=== PATIENT | male | born 1995 | race Caucasian/White ===

== ENCOUNTER 2019-04-20 15:45 | Emergency (ER) | payer MEDICAID ==
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
[2019-04-20 16:01] VITALS: BP 143/85; PULSE 90; O2SAT 97
== END 2019-04-20 16:30 | disposition home or self-care (01) ==
LOC: ED 15:45
DX: Z04.1 Encounter for examination and observation following transport accident (principal)
CPT/HCPCS: 99284

== ENCOUNTER 2021-03-23 04:16 | Emergency (ER) | payer SELFPAY ==
[2021-03-23] MEDS ORDERED: TORAdol 30 mg Injection IV ONE (04:57)
[2021-03-23] MEDS ORDERED: GI COCKTAIL 45 ML (Maalox/Lidocaine) PO ONE (04:57)
[2021-03-23] MEDS ORDERED: Sodium Chloride 0.9% 1000 ML 1,000 ML IV STA (04:57)
[2021-03-23] MEDS ORDERED: Pepcid 20 MG VIAL IV ONE ×2 (04:57→05:03)
--- NOTE | 2021-03-23 04:58 | ERPHSYRPT ---
- History of Present Illness Time Seen by Provider: 03/23/21 04:55 Historian: patient Exam Limitations: no limitations Patient Subjective Stated Complaint: Patient states " I woke up with having sharp and dull pains in the left side of my stomach." Triage Nursing Assessment: . Physician History: 26 years old presented in the ER with chief complaint of sudden onset left-sided abdominal pain waking from sleep moderate to severe intensity with radiation to left flank, reports associated nausea but no vomiting. Denies any constipation or diarrhea. Does not have history of GERD. Denies fever or chills/sick contact. Timing/Duration: hour(s) (3), constant, sudden, improved Activities at Onset: sleep Quality: dullness, sharpness Abdominal Pain Onset Location: LUQ, epigastric, flank Severity of Pain-Max: severe Severity of Pain-Current: moderate Modifying Factors: Improves With: nothing Associated Symptoms: nausea, No vomiting Previous symptoms: no prior history Allergies/Adverse Reactions: No Known Drug Allergies Allergy (Verified 03/23/21 04:38) Hx Tetanus, Diphtheria Vaccination/Date Given: No Hx Influenza Vaccination/Date Given: No Hx Pneumococcal Vaccination/Date Given: No Immunizations Up to Date: Yes Travel Risk - International Travel Have you traveled outside of the country in past 3 weeks: No - Coronavirus Screening Are you exhibiting any of the following symptoms?: No Close contact with a COVID-19 positive Pt in past 14-21 Days: No - Vaccine Status Have you recieved a Covid-19 vaccination: No - Review of Systems Constitutional: No Symptoms Eyes: No Symptoms Ears, Nose, & Throat: No Symptoms Respiratory: No Symptoms Cardiac: No Symptoms Abdominal/Gastrointestinal: Abdominal Pain, Nausea Genitourinary Symptoms: No Symptoms Musculoskeletal: No Symptoms Skin: No Symptoms Neurological: No Symptoms Psychological: No Symptoms Endocrine: No Symptoms Hematologic/Lymphatic: No Symptoms Immunological/Allergic: No Symptoms - Past Medical History Pertinent Past Medical History: No Neurological History: No Pertinent History ENT History: No Pertinent History Cardiac History: No Pertinent History Respiratory History: No Pertinent History Endocrine Medical History: No Pertinent History Musculoskeletal History: No Pertinent History GI Medical History: No Pertinent History History: No Pertinent History Psycho-Social History: No Pertinent History Male Reproductive Disorders: No Pertinent History - Past Surgical History Past Surgical History: No Neuro Surgical History: No Pertinent History Cardiac: No Pertinent History Respiratory: No Pertinent History Gastrointestinal: No Pertinent History Genitourinary: No Pertinent History Musculoskeletal: No Pertinent History Male Surgical History: No Pertinent History - Social History Smoking Status: Never smoker Exposure to second hand smoke: No Drug Use: none Patient Lives Alone: No - Nursing Vital Signs Nursing Vital Signs: Initial Vital Signs Temperature 97.9 F 03/23/21 04:17 Pulse Rate 70 03/23/21 04:17 Respiratory Rate 18 03/23/21 04:17 Blood Pressure 139/75 03/23/21 04:17 O2 Sat by Pulse Oximetry 100 03/23/21 04:17 Pain Scale Pain Intensity 0 - Physical Exam General Appearance: no apparent distress, alert Eye Exam: PERRL/EOMI, eyes nml inspection Ears, Nose, Throat Exam: normal ENT inspection, pharynx normal, moist mucous membranes Neck Exam: normal inspection, supple, full range of motion Respiratory Exam: normal breath sounds, lungs clear Cardiovascular Exam: regular rate/rhythm, normal heart sounds Gastrointestinal/Abdomen Exam: soft, normal bowel sounds, tenderness (Left-sided abdominal pain) Extremity Exam: normal inspection, normal range of motion Neurologic Exam: alert, oriented x 3, cooperative, fur storage clerk II-XII nml as tested Skin Exam: normal color SpO2 Interpretation: normal SpO2: 100 O2 Delivery: Room Air Ordered Tests: Active Orders 24 hr Category Date Time Status IV Insertion STAT Care 03/23/21 04:57 Active ABDOMEN AND PELVIS W/0 CONTRAS [CT] Stat Exams 03/23/21 04:57 Taken CBC W DIFF Stat Lab 03/23/21 05:22 Completed CMP Stat Lab 03/23/21 05:22 Completed LIPASE Stat Lab 03/23/21 05:22 Completed UA W/RFX UR CULTURE Stat Lab 03/23/21 05:00 Completed Medication Summary Discontinued Medications Generic Name Dose Route Start Last Admin Trade Name Freq PRN Reason Stop Dose Admin Al Hydrox/Mg Hydrox/Simethicone Confirm 03/23/21 05:05 Mag Hydrox/Al Hydrox/Simeth 30 Ml Udcup Administered 03/23/21 05:06 Dose 30 ml .ROUTE .STK-MED ONE Famotidine 20 mg 03/23/21 04:57 03/23/21 05:13 Famotidine 20 Mg/1 Vial IV 03/23/21 04:58 20 mg STAT ONE Administration Famotidine Confirm 03/23/21 05:03 Famotidine 20 Mg/1 Vial Administered 03/23/21 05:04 Dose 20 mg IV .STK-MED ONE Sodium Chloride 1,000 mls @ 999 mls/hr 03/23/21 04:57 03/23/21 06:27 Sodium Chloride 0.9% 1000 Ml IV 03/23/21 05:57 Infused .Q1H1M STA Infusion Sodium Chloride Confirm 03/23/21 05:05 Sodium Chloride 0.9% 1000 Ml Administered 03/23/21 05:06 Dose 1,000 mls @ ud .ROUTE .STK-MED ONE Ketorolac Tromethamine 30 mg 03/23/21 04:57 03/23/21 05:13 Ketorolac Tromethamine 30 Mg/Ml Inj IV 03/23/21 04:58 30 mg STAT ONE Administration Ketorolac Tromethamine Confirm 03/23/21 05:03 Ketorolac Tromethamine 30 Mg/Ml Inj Administered 03/23/21 05:04 Dose 30 mg .ROUTE .STK-MED ONE Lidocaine HCl Confirm 03/23/21 05:05 Lidocaine Hcl Viscous 1 Ml Administered 03/23/21 05:06 Dose 15 ml .ROUTE .STK-MED ONE Magnesium Hydroxide 45 ml 03/23/21 04:57 03/23/21 05:16 Mag Hydrx/Alum Hyd/Simeth/Lido 45 Ml Bottle PO 03/23/21 04:58 45 ml STAT ONE Administration Lab/Rad Data: Laboratory Result Diagrams 03/23/21 05:22 03/23/21 05:22 Laboratory Results 03/23/21 03/23/21 03/23/21 Range/Units 05:22 05:22 05:00 WBC 7.4 (4.0-10.5) K/mm3 RBC 5.44 (4.1-5.6) M/mm3 Hgb 15.2 (12.5-18.0) gm/dl Hct 45.8 (42-50) % MCV 84.2 (78-100) fl MCH 27.9 (26-32) pg MCHC 33.2 (32-36) g/dl RDW 13.3 (11.5-14.0) % Plt Count 235 (150-450) K/mm3 MPV 10.5 (7.5-11.0) fl Gran % 59.7 (36.0-66.0) % Eos # (Auto) 0.16 (0-0.5) Absolute Lymphs (auto) 2.14 (1.0-4.6) Absolute Monos (auto) 0.67 (0.0-1.3) Lymphocytes % 28.8 (24.0-44.0) % Monocytes % 9.0 (0.0-12.0) % Eosinophils % 2.2 (0.00-5.0) % Basophils % 0.3 (0.0-0.4) % Absolute Granulocytes 4.45 (1.4-6.9) Basophils # 0.02 (0-0.4) Sodium 139 (137-145) mmol/L Potassium 4.1 (3.5-5.1) mmol/L Chloride 102 (98-107) mmol/L Carbon Dioxide 30 (22-30) mmol/L Anion Gap 10.7 (5-15) MEQ/L BUN 18 (9-20) mg/dL Creatinine 0.92 (0.66-1.25) mg/dL Estimated GFR > 60.0 ML/MIN Glucose 100 (74-106) mg/dL Calcium 9.3 (8.4-10.2) mg/dL Total Bilirubin 0.70 (0.2-1.3) mg/dL AST 22 (17-59) U/L ALT 21 (0-50) U/L Alkaline Phosphatase 66 (38-126) U/L Serum Total Protein 8.0 (6.3-8.2) g/dL Albumin 4.7 (3.5-5.0) g/dL Lipase 48 (23-300) U/L Urine Color YELLOW (YELLOW) Urine Appearance CLEAR (CLEAR) Urine pH 5.0 (5-6) Ur Specific [place] 1.018 (1.005-1.025) Urine Protein NEGATIVE (Negative) Urine Ketones NEGATIVE (NEGATIVE) Urine Blood NEGATIVE (0-5) Michael/ul Urine Nitrite NEGATIVE (NEGATIVE) Urine Bilirubin NEGATIVE (NEGATIVE) Urine Urobilinogen NEGATIVE (0-1) mg/dL Ur Leukocyte Esterase NEGATIVE (NEGATIVE) Urine WBC (Auto) NONE (0-5) /HPF Urine RBC (Auto) NONE SEEN (0-2) /HPF U Epithel Cells (Auto) NONE (FEW) /HPF Urine Bacteria (Auto) NONE SEEN (NEGATIVE) /HPF Urine Mucus (Auto) SLIGHT (NEGATIVE) /HPF Urine Culture Reflexed NO (NO) Urine Glucose NEGATIVE (NEGATIVE) mg/dL - Progress Progress: improved Progress Note: 03/23/21 06:55 Negative acute abdomen work-up. Pain is resolved. Could be acid reflux related. We will start him on Protonix. Recommended not taking ibuprofen but Tylenol. Outpatient follow-up. Counseled pt/family regarding: lab results, diagnosis, need for follow-up, rad results - Departure Departure Disposition: Home Clinical Impression: Left sided abdominal pain Condition: Stable Critical Care Time: No Referrals: DOCTOR,NO FAMILY [Primary Care Provider] - Follow up/PCP as directed DAWSON STANLEY MD [ACTIVE STAFF] - Follow Up with PCP/3 days Instructions: Acute Abdomen (Belly Pain), Adult (DC) Additional Instructions: Take Tylenol as needed for pain. Follow-up with primary care for reevaluation. Return to ER for worsening pain or if develop nausea vomiting etc. Prescriptions: PANTOPRAZOLE 40 mg Tablet [Protonix 40MG Tablet] 40 mg PO QAM #30 tab
[2021-03-23] MEDS ORDERED: TORAdol 30 mg Injection ONE (05:03)
[2021-03-23] MEDS ORDERED: MAALOX ES 30 ML UNIT DOSE ONE (05:05)
[2021-03-23] MEDS ORDERED: XYLOCAINE HCl Viscous ONE (05:05)
[2021-03-23] MEDS ORDERED: Sodium Chloride 0.9% 1000 ML 1,000 ML ONE (05:05)
[2021-03-23 05:25] LABS: Absolute Neutrophil Ct (ANC) 4.45 (1.4-6.9); BASOPHIL % 0.3 % (0.0-0.4); Basophil (Absolute #) 0.02 (0-0.4); Eosinophil % 2.2 % (0.00-5.0); Eosinophil (Absolute #) 0.16 (0-0.5); Hematocrit 45.8 % (42-50); Hemoglobin 15.2 gm/dl (12.5-18.0); Lymphocyte (Absolute #) 2.14 (1.0-4.6); Lymphocytes % 28.8 % (24.0-44.0); Mean Cell Volume 84.2 fl (78-100); Mean Corpuscular Hemoglobin 27.9 pg (26-32); Mean Corpuscular Hgb Concent. 33.2 g/dl (32-36); Mean Platelet Volume 10.5 fl (7.5-11.0); Monocyte (Absolute #) 0.67 (0.0-1.3); Neutrophil % 59.7 % (36.0-66.0); Platelet Count 235 K/mm3 (150-450); Red Blood Count 5.44 M/mm3 (4.1-5.6); Red Cell Distribution Width 13.3 % (11.5-14.0); White Blood Count 7.4 K/mm3 (4.0-10.5)
[2021-03-23 05:31] LABS: Appearance CLEAR (CLEAR); Bilirubin NEGATIVE (NEGATIVE); Blood NEGATIVE Ery/ul (0-5); Glucose NEGATIVE (NEGATIVE); Ketones NEGATIVE (NEGATIVE); Leukocyte Esterase NEGATIVE (NEGATIVE); Mucus SLIGHT /HPF (NEGATIVE); Nitrite NEGATIVE (NEGATIVE); Protein,Urine Dip NEGATIVE (Negative); Specific Gravity 1.018 (1.005-1.025); Urobilinogen NEGATIVE mg/dL (0-1)
[2021-03-23 05:39] LABS: ALBUMIN 4.7 g/dL (3.5-5.0); ALKALINE PHOSPHATASE 66 U/L (38-126); ANION GAP 10.7 MEQ/L (5-15); BLOOD UREA NITROGEN 18 mg/dL (9-20); CHLORIDE 102 mmol/L (98-107); Calcium 9.3 mg/dL (8.4-10.2); Carbon Dioxide 30 mmol/L (22-30); Creatinine 1 0.92 mg/dL (0.66-1.25); EST GLOMERULAR FILTRATION RATE > 60.0 ML/MIN; Glucose 100 mg/dL (74-106); LIPASE 48 U/L (23-300); Potassium 4.1 mmol/L (3.5-5.1); SGOT/AST 22 U/L (17-59); SGPT/ALT 21 U/L (0-50); SODIUM 139 mmol/L (137-145)
[2021-03-23 05:44] LABS: Bacteria NONE SEEN /HPF (NEGATIVE); RBC NONE SEEN /HPF (0-2)
--- NOTE | 2021-03-23 09:01 | XRAY ---
Indication: Left abdomen pain. Multiple contiguous axial images obtained through the abdomen and pelvis without contrast. Comparison: None. Lung bases demonstrates minimal fibrosis/scarring. No infiltrate or effusion. Heart not enlarged. Noncontrasted stomach and bowel loops appear nonobstructed with normal appendix. Mild diffuse scattered colonic fecal debris throughout. Minimal sigmoid diverticulosis. No free fluid/air. Remaining liver, gallbladder, pancreas, spleen, adrenal glands, kidneys, ureters, bladder, and aorta appear unremarkable for noncontrast exam. Osseous structures intact. Small fatty left inguinal hernia. Impression: 1. Mild diffuse fecal stasis, minimal sigmoid diverticulosis, and small fatty left inguinal hernia. 2. Remaining CT abdomen/pelvis without contrast exam is negative. Comment: Preliminary interpretation made by [facility]. No critical discrepancy.
[2021-03-26 17:00] VITALS: BP 104/60; PULSE 74; O2SAT 100
== END 2021-03-23 07:05 | disposition home or self-care (01) ==
LOC: ED 04:16
DX: R10.12 Left upper quadrant pain (principal)
CPT/HCPCS: 36000; 36415; 74176; 80053; 81001; 83690; 85025; 96360; 96374; 96375; 99284; J1885; A9270-GY

== ENCOUNTER 2023-08-01 11:50 | Emergency (ER) | payer BC ==
[2023-08-01 12:08] VITALS: RESP 18; TEMP 98.2
[2023-08-01 12:09] VITALS: O2SAT 97
--- NOTE | 2023-08-01 12:34 | XRAY ---
Indication: Epistaxis with cough. Comparison: None Portable chest demonstrates normal heart, lungs, and bony thorax.
--- NOTE | 2023-08-01 12:52 | ERPHSYRPT ---
- History of Present Illness Time Seen by Provider: 08/01/23 12:48 Source: patient Exam Limitations: no limitations Patient Subjective Stated Complaint: C/O cough for a few days. Patient reports the cough became productive yesterday evening following a nose bleed. Patient is unsure if he was actually coughing up mucous or if he was coughing up the blood draining down the back of his throat from the nose bleed. Triage Nursing Assessment: Patient ambulated back to ER without difficulties. He is alert and oriented. No SOB. Occassional, dry, non-productive cough present during assessment. Skin tone normal. BECKER WNL. No active nose bleed at this time. Physician History: Patient is a 28-year-old white male who has been sick for several days with cough cold nasal drainage etc. In fact the patient says the entire household is sick with similar symptoms. He however developed a nosebleed. He has since the nosebleed apparently stopped has been blowing mucus out of the left side of his nostrils.He says no blood has come from the right side. He is concerned that the blood may be coming from his chest and not his nose.He does not wish to have extensive testing.He is quite certain it is not COVID etc. Timing/Duration: yesterday Cough Quality/Degree: productive cough Possible Cause: no prior episodes Allergies/Adverse Reactions: pollen extracts Allergy (Verified 08/01/23 11:57) Hx Tetanus, Diphtheria Vaccination/Date Given: Yes Hx Influenza Vaccination/Date Given: No Hx Pneumococcal Vaccination/Date Given: No Immunizations Up to Date: Yes Travel Risk - International Travel Have you traveled outside of the country in past 3 weeks: No - Emerging Infectious Disease Are you exhibiting symptoms associated with any current EIDs: No - Review of Systems Constitutional: No Fever, No Chills Eyes: No Symptoms Ears, Nose, & Throat: No Symptoms, Nose Discharge, Epistaxis Respiratory: Cough, No Dyspnea Cardiac: No Chest Pain, No Edema, No Syncope Abdominal/Gastrointestinal: No Abdominal Pain, No Nausea, No Vomiting, No Diarrhea Genitourinary Symptoms: No Dysuria Musculoskeletal: No Back Pain, No Neck Pain Skin: No Rash Neurological: No Dizziness, No Focal Weakness, No Sensory Changes Psychological: No Symptoms Endocrine: No Symptoms All Other Systems: Reviewed and Negative - Past Medical History Pertinent Past Medical History: No Neurological History: No Pertinent History ENT History: No Pertinent History Cardiac History: No Pertinent History Respiratory History: No Pertinent History Endocrine Medical History: No Pertinent History Musculoskeletal History: No Pertinent History GI Medical History: No Pertinent History History: No Pertinent History Psycho-Social History: No Pertinent History Male Reproductive Disorders: No Pertinent History - Past Surgical History Past Surgical History: No Neuro Surgical History: No Pertinent History Cardiac: No Pertinent History Respiratory: No Pertinent History Gastrointestinal: No Pertinent History Genitourinary: No Pertinent History Musculoskeletal: No Pertinent History Male Surgical History: No Pertinent History - Social History Smoking Status: Never smoker Exposure to second hand smoke: No Drug Use: none Patient Lives Alone: No - Nursing Vital Signs Nursing Vital Signs: Initial Vital Signs Temperature 98.2 F 08/01/23 11:59 Pulse Rate 79 08/01/23 11:59 Respiratory Rate 18 08/01/23 11:59 Blood Pressure 126/89 08/01/23 11:59 O2 Sat by Pulse Oximetry 95 08/01/23 11:59 Pain Scale Pain Intensity 0 - Physical Exam General Appearance: no apparent distress, alert Eye Exam: PERRL/EOMI, eyes nml inspection Ears, Nose, Throat Exam: normal ENT inspection, TMs normal, pharynx normal, moist mucous membranes, other (Examination of the nose shows some clot on the left side. No grossly active bleeding.) Neck Exam: normal inspection, non-tender, supple, full range of motion Respiratory Exam: normal breath sounds, lungs clear, No respiratory distress Cardiovascular Exam: regular rate/rhythm, normal heart sounds Gastrointestinal/Abdomen Exam: soft, No tenderness Back Exam: normal inspection, No CVA tenderness, No vertebral tenderness Extremity Exam: normal inspection, normal range of motion Neurologic Exam: alert, oriented x 3, cooperative, normal mood/affect, sensation nml, No motor deficits Skin Exam: normal color, warm, dry, No rash Lymphatic Exam: No adenopathy SpO2: 97 - Course Nursing assessment & vital signs reviewed: Yes Ordered Tests: Active Orders 24 hr Category Date Time Status CHEST 1 VIEW (PORTABLE) Stat Exams 08/01/23 12:18 Completed - Progress Progress: improved (Improved) Air Movement: good Progress Note: 08/01/23 13:01 Patient did have a Rhino Rocket placed without difficulty.There was no recurrence of the bleeding. Blood Culture(s) Obtained: No Antibiotics given: No Medical Desision Making - Diagnostic Testing Diagnostic test were ordered, analyzed, and reviewed by me: Yes - Risk of complications Low Risk: Low risk of morbidity from additional dx testing or treatment - Departure Departure Disposition: Home Clinical Impression: Sinusitis, Epistaxis Condition: Stable Critical Care Time: No Referrals: DOCTOR,NO FAMILY [Primary Care Provider] - Follow up/PCP as directed Instructions: Cough, Adult (DC) Prescriptions: Cephalexin Mh 500 mg [Keflex 500 mg] 500 mg PO QID #40 cap
[2023-08-01 13:12] VITALS: BP 129/94; PULSE 89
== END 2023-08-01 13:21 | disposition home or self-care (01) ==
LOC: ED 11:50
DX: J32.9 Chronic sinusitis, unspecified (principal); R04.0 Epistaxis; R05.9 Cough, unspecified
CPT/HCPCS: 71045; 99282

== ENCOUNTER 2024-03-03 11:07 | Emergency (ER) | payer BC, OTHER ==
--- NOTE | 2024-03-03 11:12 | ERPHSYRPT ---
- History of Present Illness Time Seen by Provider: 03/03/24 11:11 Historian: patient Exam Limitations: no limitations Physician History: This is an obese 29-year-old white male patient of Dr. Abad who arrives to the emergency department by private vehicle escorted by his significant other. Patient complaint is intermittent generalized abdominal pain over the last 2 weeks with right side being worse at times than the left. Patient states, at the time of my examination, that he has no abdominal pain at this time. He denies nausea vomiting and diarrhea symptoms. He has had no prior abdominal surgeries. Patient takes no medications chronically and he has no known drug allergies. He does state that the symptoms came on typically after he ate. Timing/Duration: week(s) (2), resolved prior to arrival Activities at Onset: none Quality: aching Abdominal Pain Onset Location: generalized abdomen Pain Radiation: no radiation Severity of Pain-Max: mild (To moderate) Severity of Pain-Current: none Modifying Factors: Improves With: nothing Associated Symptoms: denies symptoms Previous symptoms: no prior history, no recent treatment Allergies/Adverse Reactions: pollen extracts Allergy (Verified 03/03/24 11:20) Home Medications: No Reportable Medications [No Reported Medications] 03/03/24 [History] Hx Tetanus, Diphtheria Vaccination/Date Given: Yes Hx Influenza Vaccination/Date Given: No Hx Pneumococcal Vaccination/Date Given: No Travel Risk - International Travel Have you traveled outside of the country in past 3 weeks: No - Emerging Infectious Disease Are you exhibiting symptoms associated with any current EIDs: No - Review of Systems Constitutional: No Symptoms Eyes: No Symptoms Ears, Nose, & Throat: No Symptoms Respiratory: No Symptoms Cardiac: No Symptoms Abdominal/Gastrointestinal: Abdominal Pain (None now) Genitourinary Symptoms: No Symptoms Musculoskeletal: No Symptoms Skin: No Symptoms Neurological: No Symptoms Psychological: No Symptoms Endocrine: No Symptoms Hematologic/Lymphatic: No Symptoms Immunological/Allergic: No Symptoms All Other Systems: Reviewed and Negative - Past Medical History Pertinent Past Medical History: No Neurological History: No Pertinent History ENT History: No Pertinent History Cardiac History: No Pertinent History Respiratory History: No Pertinent History Endocrine Medical History: No Pertinent History Musculoskeletal History: No Pertinent History GI Medical History: No Pertinent History History: No Pertinent History Psycho-Social History: No Pertinent History Male Reproductive Disorders: No Pertinent History - Past Surgical History Past Surgical History: No Neuro Surgical History: No Pertinent History Cardiac: No Pertinent History Respiratory: No Pertinent History Gastrointestinal: No Pertinent History Genitourinary: No Pertinent History Musculoskeletal: No Pertinent History Male Surgical History: No Pertinent History - Social History Smoking Status: Never smoker Exposure to second hand smoke: No Drug Use: none Patient Lives Alone: No - Social Determinants of Health Will the patient participate in the screening: Yes Do you worry about a steady place to live?: No In the past 12 months,have you had to go without utilities?: No Transportation Issues: No Has anyone in your support network made you feel unsafe?: No Have you or anyone in your house had to go without enough: No - Nursing Vital Signs Nursing Vital Signs: Initial Vital Signs Temperature 97.6 F 03/03/24 11:21 Pulse Rate 82 03/03/24 11:21 Respiratory Rate 10 L 03/03/24 11:21 Blood Pressure 109/87 03/03/24 11:21 O2 Sat by Pulse Oximetry 100 03/03/24 11:21 Pain Scale Pain Intensity 7 - Physical Exam General Appearance: no apparent distress, alert, anxiety, obese Eye Exam: PERRL/EOMI Ears, Nose, Throat Exam: normal ENT inspection, moist mucous membranes Neck Exam: normal inspection, non-tender, supple, full range of motion Respiratory Exam: normal breath sounds, lungs clear, airway intact, No chest tenderness, No respiratory distress Cardiovascular Exam: regular rate/rhythm, normal heart sounds, normal peripheral pulses Gastrointestinal/Abdomen Exam: soft, normal bowel sounds, No tenderness, No guarding Rectal Exam: not done Back Exam: normal inspection, normal range of motion, No CVA tenderness, No vertebral tenderness Extremity Exam: normal inspection, normal range of motion, pelvis stable Neurologic Exam: alert, oriented x 3, cooperative, fitness and wellness director II-XII nml as tested, normal mood/affect, nml cerebellar function, nml station & gait, sensation nml Skin Exam: normal color, warm, dry Lymphatic Exam: No adenopathy SpO2 Interpretation: normal O2 Delivery: Room Air - Course Nursing assessment & vital signs reviewed: Yes Ordered Tests: Active Orders 24 hr Category Date Time Status IV Insertion STAT Care 03/03/24 11:57 Active ABDOMEN AND PELVIS W/0 CONTRAS [CT] Stat Exams 03/03/24 11:57 Completed AMYLASE Stat Lab 03/03/24 12:24 Completed CBC W DIFF Stat Lab 03/03/24 12:24 Completed CMP Stat Lab 03/03/24 12:24 Completed LIPASE Stat Lab 03/03/24 12:24 Completed Lactic Acid Stat Lab 03/03/24 11:57 Completed UA W/RFX UR CULTURE Stat Lab 03/03/24 13:20 Completed Lab/Rad Data: Laboratory Result Diagrams 03/03/24 12:24 03/03/24 12:24 Laboratory Results 03/03/24 03/03/24 03/03/24 Range/Units 13:20 12:24 12:24 WBC 7.8 (4.23-9.07) x10^3/uL RBC 4.96 (4.63-6.08) x10^6/uL Hgb 14.1 (13.7-17.5) g/dL Hct 41.2 (40.1-51.0) % MCV 83.1 (79.0-92.2) fL MCH 28.4 (25.7-32.2) pg MCHC 34.2 (32.3-36.5) g/dL RDW 13.0 (11.6-14.4) % Plt Count 232 (163-337) x10^3/uL MPV 10.5 (9.4-12.4) fL Gran % 60.4 (34.0-67.9) % Immature Gran % (Auto) 0.1 (0.001-0.429) % Nucleat RBC Rel Count 0.0 (0.00-0.2) % Eos # (Auto) 0.27 (0.04-0.54) x10^3/uL Immature Gran # (Auto) 0.01 (0.001-0.031) x10^3u/L Absolute Lymphs (auto) 2.24 (1.32-3.57) x10^3/uL Absolute Monos (auto) 0.51 (0.30-0.82) x10^3/uL Absolute Nucleated RBC 0.00 (0.00-0.012) x10^3u/L Lymphocytes % 28.9 (21.8-53.1) % Monocytes % 6.6 (5.3-12.2) % Eosinophils % 3.5 (0.8-7.0) % Basophils % 0.5 (0.2-1.2) % Absolute Granulocytes 4.69 (1.78-5.38) x10^3/uL Basophils # 0.04 (0.01-0.08) x10^3/uL Sodium 142 (135-145) mmol/L Potassium 3.9 (3.5-5.1) mmol/L Chloride 105 (98-107) mmol/L Carbon Dioxide 26 (22-30) mmol/L Anion Gap 15.0 (5-15) MEQ/L BUN 17 (9-20) mg/dL Creatinine 0.85 (0.66-1.25) mg/dL Estimated GFR 119.1 ML/MIN Glucose 99 (74-106) mg/dL Lactic Acid (0.4-2.0) Calcium 9.3 (8.4-10.2) mg/dL Total Bilirubin 0.70 (0.2-1.3) mg/dL AST 26 (17-59) U/L ALT 29 (0-50) U/L Alkaline Phosphatase 71 (38-126) U/L Serum Total Protein 8.1 (6.3-8.2) g/dL Albumin 4.6 (3.5-5.0) g/dL Amylase 85 (30-110) U/L Lipase 32 (23-300) U/L Urine Color Yellow (Yellow) Urine Appearance Clear (Clear) Urine pH 6.0 (4.6-8.0) Ur Specific [place] 1.025 (1.005-1.030) Urine Protein Negative (Negative) Urine Glucose (UA) Negative (Negative) mg/dL Urine Ketones Negative (Negative) Urine Blood Negative (Negative) Urine Nitrite Negative (Negative) Urine Bilirubin Negative (Negative) Urine Urobilinogen 0.2 (0.2) mg/dL Ur Leukocyte Esterase Negative (Negative) U Hyaline Cast (Auto) NONE SEEN (0-2) /LPF Urine Microscopic RBC 0-2 (0-5) /HPF Urine Microscopic WBC 0-2 (0-5) /HPF Ur Epithelial Cells None Seen (None Seen) /HPF Urine Bacteria None Seen (None Seen) /HPF Urine Culture Reflexed NO (NO) 03/03/24 Range/Units 11:57 WBC (4.23-9.07) x10^3/uL RBC (4.63-6.08) x10^6/uL Hgb (13.7-17.5) g/dL Hct (40.1-51.0) % MCV (79.0-92.2) fL MCH (25.7-32.2) pg MCHC (32.3-36.5) g/dL RDW (11.6-14.4) % Plt Count (163-337) x10^3/uL MPV (9.4-12.4) fL Gran % (34.0-67.9) % Immature Gran % (Auto) (0.001-0.429) % Nucleat RBC Rel Count (0.00-0.2) % Eos # (Auto) (0.04-0.54) x10^3/uL Immature Gran # (Auto) (0.001-0.031) x10^3u/L Absolute Lymphs (auto) (1.32-3.57) x10^3/uL Absolute Monos (auto) (0.30-0.82) x10^3/uL Absolute Nucleated RBC (0.00-0.012) x10^3u/L Lymphocytes % (21.8-53.1) % Monocytes % (5.3-12.2) % Eosinophils % (0.8-7.0) % Basophils % (0.2-1.2) % Absolute Granulocytes (1.78-5.38) x10^3/uL Basophils # (0.01-0.08) x10^3/uL Sodium (135-145) mmol/L Potassium (3.5-5.1) mmol/L Chloride (98-107) mmol/L Carbon Dioxide (22-30) mmol/L Anion Gap (5-15) MEQ/L BUN (9-20) mg/dL Creatinine (0.66-1.25) mg/dL Estimated GFR ML/MIN Glucose (74-106) mg/dL Lactic Acid 0.8 (0.4-2.0) Calcium (8.4-10.2) mg/dL Total Bilirubin (0.2-1.3) mg/dL AST (17-59) U/L ALT (0-50) U/L Alkaline Phosphatase (38-126) U/L Serum Total Protein (6.3-8.2) g/dL Albumin (3.5-5.0) g/dL Amylase (30-110) U/L Lipase (23-300) U/L Urine Color (Yellow) Urine Appearance (Clear) Urine pH (4.6-8.0) Ur Specific [place] (1.005-1.030) Urine Protein (Negative) Urine Glucose (UA) (Negative) mg/dL Urine Ketones (Negative) Urine Blood (Negative) Urine Nitrite (Negative) Urine Bilirubin (Negative) Urine Urobilinogen (0.2) mg/dL Ur Leukocyte Esterase (Negative) U Hyaline Cast (Auto) (0-2) /LPF Urine Microscopic RBC (0-5) /HPF Urine Microscopic WBC (0-5) /HPF Ur Epithelial Cells (None Seen) /HPF Urine Bacteria (None Seen) /HPF Urine Culture Reflexed (NO) - Progress Progress: unchanged, re-examined Progress Note: 03/03/24 12:31 My medical decision making and the assignment of moderate complexity to this patient's medical issue today is based on review of the patient's past medical history, review of the patient's medication list, review of patient drug allergy list, history present illness and physical findings on examination. The workup in this patient includes placement of an intravenous line, CBC, CMP, lactic acid level, amylase, lipase, urinalysis and CT scan of the abdomen pelvis. Differential diagnosis includes but is not limited to cholecystitis, appendicitis, pancreatitis, colitis, bowel obstruction, urinary tract infection, muscle skeletal pain 03/03/24 14:11 Interpreted the patient's laboratory data results. Based on the laboratory data results the patient has no acute, emergent medical issue. The CT scan of the abdomen pelvis without contrast was interpreted by the radiologist and I reviewed the impression. The impression states that there is a prominent appendix without periappendiceal inflammation or stranding. Mild early appendicitis is not completely excluded. I discussed the patient's workup results including laboratory data and radiographic studies. The patient clinically has no evidence of abdominal pain at this time. He also has no laboratory evidence of any acute or emergent findings. There is a prominent appendix without the inflammatory sequela you would expect with acute appendicitis. I offered him to be placed in observation and followed in the hospital. He declines this option. I also offered him to return tomorrow to the emergency department for reexamination. He declines this option. He states he will return if and when he has recurrent symptoms. Counseled pt/family regarding: lab results, diagnosis, need for follow-up, rad r esults Medical Desision Making - Independent Historian Additional History obtained from: Spouse - Diagnostic Testing Diagnostic test were ordered, analyzed, and reviewed by me: Yes Radiological Interpretation: Reviewed by me, Teleradiologist Report - Risk of complications Low Risk: Low risk of morbidity from additional dx testing or treatment - Departure Departure Disposition: Home Clinical Impression: Abdominal pain Condition: Stable Critical Care Time: No Referrals: DOCTOR,NO FAMILY [NON-STAFF PHY W/O PRIVILEGES] - Follow up/PCP as directed Instructions: Appendicitis in adults Additional Instructions: Drink plenty of fluids. Take Tylenol and ibuprofen for pain control. Return to the emergency department if your symptoms recur.
[2024-03-03 11:31] VITALS: TEMP 97.6
[2024-03-03 12:28] LABS: Absolute Neutrophil Ct (ANC) 4.69 x10^3/uL (1.78-5.38); BASOPHIL % 0.5 % (0.2-1.2); Basophil (Absolute #) 0.04 x10^3/uL (0.01-0.08); Eosinophil % 3.5 % (0.8-7.0); Eosinophil (Absolute #) 0.27 x10^3/uL (0.04-0.54); Hematocrit 41.2 % (40.1-51.0); Hemoglobin 14.1 g/dL (13.7-17.5); IMMATURE GRAN # 0.01 x10^3u/L (0.001-0.031); IMMATURE GRAN % 0.1 % (0.001-0.429); Lymphocyte (Absolute #) 2.24 x10^3/uL (1.32-3.57); Lymphocytes % 28.9 % (21.8-53.1); Mean Cell Volume 83.1 fL (79.0-92.2); Mean Corpuscular Hemoglobin 28.4 pg (25.7-32.2); Mean Corpuscular Hgb Concent. 34.2 g/dL (32.3-36.5); Mean Platelet Volume 10.5 fL (9.4-12.4); Monocyte (Absolute #) 0.51 x10^3/uL (0.30-0.82); Monocytes % 6.6 % (5.3-12.2); Neutrophil % 60.4 % (34.0-67.9); Platelet Count 232 x10^3/uL (163-337); Red Blood Count 4.96 x10^6/uL (4.63-6.08); White Blood Count 7.8 x10^3/uL (4.23-9.07)
[2024-03-03 12:40] LABS: ALBUMIN 4.6 g/dL (3.5-5.0); BILIRUBIN,TOTAL 0.7 mg/dL (0.2-1.3); Calcium 9.3 mg/dL (8.4-10.2); Creatinine 1 0.85 mg/dL (0.66-1.25); EST GLOMERULAR FILTRATION RATE 119.1 ML/MIN; Potassium 3.9 mmol/L (3.5-5.1); Total Protein 8.1 g/dL (6.3-8.2)
[2024-03-03 13:30] LABS: Appearance Clear (Clear); Bacteria None Seen /HPF (None Seen); Bilirubin Negative (Negative); Blood Negative (Negative); Epithelial Cells None Seen /HPF (None Seen); Glucose, Urine Negative (Negative); Hyaline Casts NONE SEEN /LPF (0-2); Ketones Negative (Negative); Leukocyte Esterase Negative (Negative); Nitrite Negative (Negative); Protein,Urine Dip Negative (Negative); RBC 0-2 /HPF (0-5); Specific Gravity 1.025 (1.005-1.030); Urobilinogen 0.2 mg/dL (0.2); WBC 0-2 /HPF (0-5)
--- NOTE | 2024-03-03 13:32 | XRAY ---
Indication: Abdominal pain. Multiple contiguous axial images obtained through the abdomen and pelvis without contrast. Comparison: March 23, 2021 Lung bases clear. Heart not enlarged. Noncontrasted stomach and bowel loops appear nonobstructed. Proximal appendix is now prominent up to 1.2 cm without periappendiceal stranding. Mild/early appendicitis not completely excluded in right clinical setting. Again mild diffuse colonic fecal debris. No free fluid/air. Remaining liver, gallbladder, pancreas, spleen, adrenal glands, kidneys, ureters, bladder, and aorta are unremarkable for noncontrast exam. Osseous structures intact. Stable small fatty left inguinal hernia. Impression: 1. Again mild diffuse fecal stasis and small fatty left inguinal hernia. 2. New prominent proximal appendix without periappendiceal stranding. Mild/early appendicitis appendicitis not completely excluded on this noncontrast exam.
[2024-03-03 14:10] VITALS: BP 111/71; PULSE 72; RESP 16; O2SAT 97
== END 2024-03-03 14:18 | disposition home or self-care (01) ==
LOC: ED 11:07
DX: R10.84 Generalized abdominal pain (principal)
CPT/HCPCS: 36000; 36415; 74176; 80053; 81001; 82150; 83605; 83690; 85025; 99283

== ENCOUNTER 2024-06-07 07:17 | Emergency (ER) | payer OTHER ==
[2024-06-07 07:35] VITALS: RESP 18; TEMP 100.3; O2SAT 98
--- NOTE | 2024-06-07 07:44 | ERPHSYRPT ---
- History of Present Illness Time Seen by Provider: 06/07/24 07:44 Source: patient Exam Limitations: no limitations Patient Subjective Stated Complaint: C/O sorethroat and fever for 4 days Triage Nursing Assessment: Patient ambulated back to ER without difficulties. He is alert and oriented. No SOB. No cough. Flushed. Warm to touch. ROSITA LUNDBERG. Physician History: This is a 29-year-old white male patient of Dr. Abad who arrives by private vehicle with a complaint of sore throat and fever intermittently for 4 days. Patient denies chest pain. Patient denies shortness of breath. Patient denies cough. Patient last took Tylenol at approximately 8 PM last night. Patient denies vomiting and he denies diarrhea. Timing/Duration: day(s) (4) Cough Quality/Degree: no cough Possible Cause: no prior episodes Associated Symptoms: fever, sore throat, No chest pain/soreness, No cough, No shortness of breath Allergies/Adverse Reactions: pollen extracts Allergy (Verified 06/07/24 07:31) Hx Tetanus, Diphtheria Vaccination/Date Given: Yes Hx Influenza Vaccination/Date Given: No Hx Pneumococcal Vaccination/Date Given: No Immunizations Up to Date: Yes Travel Risk - International Travel Have you traveled outside of the country in past 3 weeks: No - Emerging Infectious Disease Are you exhibiting symptoms associated with any current EIDs: Yes Symptoms: Fever, Headaches/Body Aches/, Other (Please Comment) Comment: sore throat - Review of Systems Constitutional: Fever Eyes: No Symptoms Ears, Nose, & Throat: Throat Pain Respiratory: No Symptoms Cardiac: No Symptoms Abdominal/Gastrointestinal: No Symptoms Genitourinary Symptoms: No Symptoms Musculoskeletal: No Symptoms Skin: No Symptoms Neurological: No Symptoms Psychological: No Symptoms Endocrine: No Symptoms Hematologic/Lymphatic: No Symptoms Immunological/Allergic: No Symptoms All Other Systems: Reviewed and Negative - Past Medical History Pertinent Past Medical History: No Neurological History: No Pertinent History ENT History: No Pertinent History Cardiac History: No Pertinent History Respiratory History: No Pertinent History Endocrine Medical History: No Pertinent History Musculoskeletal History: No Pertinent History GI Medical History: No Pertinent History History: No Pertinent History Psycho-Social History: No Pertinent History Male Reproductive Disorders: No Pertinent History Other Medical History: head injury as a child; unsure of specifics - Past Surgical History Past Surgical History: No Neuro Surgical History: No Pertinent History Cardiac: No Pertinent History Respiratory: No Pertinent History Gastrointestinal: No Pertinent History Genitourinary: No Pertinent History Musculoskeletal: No Pertinent History Male Surgical History: No Pertinent History Other Surgical History: metal kj in right arm - Social History Smoking Status: Never smoker Exposure to second hand smoke: No Drug Use: none Patient Lives Alone: No - Social Determinants of Health Will the patient participate in the screening: Yes Do you worry about a steady place to live?: No Do you have any problems with any of the following?: No known problems In the past 12 months,have you had to go without utilities?: No Transportation Issues: No Has anyone in your support network made you feel unsafe?: No Have you or anyone in your house had to go without enough: No - Nursing Vital Signs Nursing Vital Signs: Initial Vital Signs Temperature 100.3 F 06/07/24 07:31 Pulse Rate 117 H 06/07/24 07:31 Respiratory Rate 18 06/07/24 07:31 Blood Pressure 136/102 06/07/24 07:31 O2 Sat by Pulse Oximetry 98 06/07/24 07:31 Pain Scale Pain Intensity 10 - Physical Exam General Appearance: no apparent distress, alert, anxiety Eye Exam: PERRL/EOMI, eyes nml inspection Ears, Nose, Throat Exam: normal ENT inspection, moist mucous membranes, pharyngeal erythema Neck Exam: normal inspection, non-tender, supple, full range of motion Respiratory Exam: normal breath sounds, lungs clear, airway intact, No chest tenderness, No respiratory distress Cardiovascular Exam: tachycardia Gastrointestinal/Abdomen Exam: soft, normal bowel sounds, No tenderness Rectal Exam: not done Back Exam: normal inspection, normal range of motion, No CVA tenderness, No vertebral tenderness Extremity Exam: normal inspection, normal range of motion, pelvis stable Neurologic Exam: alert, oriented x 3, cooperative, nml cerebellar function, nml station & gait, sensation nml Skin Exam: normal color, warm, dry Lymphatic Exam: No adenopathy SpO2 Interpretation: normal SpO2: 98 O2 Delivery: Room Air - Course Nursing assessment & vital signs reviewed: Yes Ordered Tests: Medication Summary Discontinued Medications Generic Name Dose Route Start Last Admin Trade Name Freq PRN Reason Stop Dose Admin Hydrocodone Bitart/Acetaminophen 10 ml 06/07/24 07:57 06/07/24 08:10 Hydrocodone/Acetaminophen 5 Ml Udcup PO 06/07/24 07:58 10 ml STAT STA Administration Hydrocodone Bitart/Acetaminophen Confirm 06/07/24 08:05 Hydrocodone/Acetaminophen 5 Ml Udcup Administered 06/07/24 08:06 Dose 10 ml .ROUTE .STK-[place] ONE Ibuprofen 600 mg 06/07/24 07:57 06/07/24 08:06 Ibuprofen 600 Mg Tablet PO 06/07/24 07:58 600 mg STAT ONE Administration Ibuprofen Confirm 06/07/24 08:05 Ibuprofen 600 Mg Tablet Administered 06/07/24 08:06 Dose 600 mg .ROUTE .STK-MED ONE Lab/Rad Data: Laboratory Results 06/07/24 Range/Units 07:44 Influenza Type A Ag NEGATIVE (NEGATIVE) Influenza Type B Ag NEGATIVE (NEGATIVE) RSV (PCR) NEGATIVE (NEGATIVE) SARS-CoV-2 (PCR) NEGATIVE (NEGATIVE) Group A Strep Antibody DETECTED A (NEGATIVE) - Progress Progress: improved, re-examined Air Movement: good Progress Note: 06/07/24 08:00 My medical decision making and the assignment of low complexity to this patient's medical issue today is based on review of the patient's past medical history, review of the patient's medication list, review of the patient drug allergy list, history present illness and physical findings on examination. The workup in this patient includes group A strep test and viral swabs. Differential diagnosis includes but is not limited to viral illness, strep pharyngitis 06/07/24 08:34 I interpreted the patient's laboratory data results. Based on the laboratory data results, the patient has tested positive for strep pharyngitis. Blood Culture(s) Obtained: No Antibiotics given: Yes Counseled pt/family regarding: lab results, diagnosis, need for follow-up Medical Desision Making - Diagnostic Testing Diagnostic test were ordered, analyzed, and reviewed by me: Yes - Risk of complications The pt has a mod risk of morbidity or mortality based on: Need for prescription drug management - Departure Departure Disposition: Home Clinical Impression: Strep pharyngitis Condition: Stable Critical Care Time: No Referrals: YAIR ABAD [Primary Care Provider] - Follow up/PCP as directed Additional Instructions: Drink plenty of cool liquids. Add ibuprofen 600 mg orally 3 times a day with food for the next 5 days for pain and fever control. Prescriptions: Amoxicillin 500 mg Cap [Amoxil 500 mg] 500 mg PO TID #30 cap Hydrocodone/Acetaminophen [Hydrocodone-Acetamn 7.5-325/15] 10 ml PO Q8H PRN #120 ml MDD 30 ml PRN Reason: Cough
[2024-06-07] MEDS ORDERED: MOTRIN 600 MG ONE (08:05)
[2024-06-07] MEDS ORDERED: HYDROCODONE-ACETAMIN 2.5-108/5 ML SOLUTION ONE (08:05)
[2024-06-07] MEDS: MOTRIN 600 MG PO ONE (08:06)
[2024-06-07] MEDS: HYDROCODONE-ACETAMIN 2.5-108/5 ML SOLUTION PO STA (08:10)
[2024-06-07 08:12] LABS: Group A Strep DETECTED (NEGATIVE)
[2024-06-07 08:26] LABS: INFLUENZA A NEGATIVE (NEGATIVE); INFLUENZA B NEGATIVE (NEGATIVE); RESPIRATORY SYNCTIAL VIRUS NEGATIVE (NEGATIVE); SARS-CoV-2 Xpert Express NEGATIVE (NEGATIVE)
[2024-06-07] MEDS ORDERED: AMOXIL 500 MG ONE (08:43)
[2024-06-07] MEDS: AMOXIL 500 MG PO ONE (08:44)
[2024-06-07 08:51] VITALS: BP 111/79; PULSE 90
== END 2024-06-07 08:51 | disposition home or self-care (01) ==
LOC: ED 07:17
DX: J02.0 Streptococcal pharyngitis (principal); R50.9 Fever, unspecified; Z79.891 Long term (current) use of opiate analgesic; Z79.899 Other long term (current) drug therapy
CPT/HCPCS: 0241U; 87651; 99284; 99283; A9270-GY

== ENCOUNTER 2024-06-07 18:02 | Emergency (ER) | payer OTHER ==
[2024-06-07] MEDS ORDERED: XYLOCAINE 1% HCL 20 ML MDV IJ ONE (18:03)
[2024-06-07 20:58] VITALS: RESP 16; TEMP 98.7
[2024-06-07 21:02] VITALS: O2SAT 98
--- NOTE | 2024-06-07 21:06 | ERPHSYRPT ---
- History of Present Illness Time Seen by Provider: 06/07/24 21:05 Source: patient Exam Limitations: no limitations Patient Subjective Stated Complaint: Pt reports he was in this ED this morning due to sore throat and diagnosed with strep. Given amoxicillin and hydrocone l iquid. Pt reports he picked up his prescriptions on the way to the ED tonight. Pt reports he came to ED due to uvula being swollen. Triage Nursing Assessment: Pt alert and oriented x3. Respirations easy/nonlabored. Pt does not appear to be in any distress. Skin w/p/d. Ambulated to ED cot without difficulty. Uvula appears to be swollen and red. Physician History: This is a 29-year-old white male patient who was seen earlier this morning by me in the emergency department diagnosed with strep pharyngitis. He was given a dose of ibuprofen, hydrocodone/acetaminophen elixir and amoxicillin capsule. Patient went home and went to sleep and did not knot picker cloth or take any of his medications yet. When he woke up he was gagging on his uvula. Again, he did not take any of his medicines since I gave him his medicine approximately 12 hours ago. Timing/Duration: gradual onset Severity: mild (Moderate) Prearrival Treatment: no prearrival treatment Modifying Factors: Improves With: nothing Associated Symptoms: difficulty swallowing (Uvula is swollen and edematous) Allergies/Adverse Reactions: pollen extracts Allergy (Verified 06/07/24 20:51) Hx Tetanus, Diphtheria Vaccination/Date Given: Yes Hx Influenza Vaccination/Date Given: No Hx Pneumococcal Vaccination/Date Given: No Travel Risk - International Travel Have you traveled outside of the country in past 3 weeks: No - Emerging Infectious Disease Are you exhibiting symptoms associated with any current EIDs: Yes Symptoms: Fever Comment: sore throat - Review of Systems Constitutional: No Symptoms Eyes: No Symptoms Ears, Nose, & Throat: Other (Swollen uvula) Respiratory: No Symptoms Cardiac: No Symptoms Abdominal/Gastrointestinal: No Symptoms Genitourinary Symptoms: No Symptoms Musculoskeletal: No Symptoms Skin: No Symptoms Neurological: No Symptoms Psychological: No Symptoms Endocrine: No Symptoms Hematologic/Lymphatic: No Symptoms Immunological/Allergic: No Symptoms All Other Systems: Reviewed and Negative - Past Medical History Pertinent Past Medical History: No Neurological History: No Pertinent History ENT History: No Pertinent History Cardiac History: No Pertinent History Respiratory History: No Pertinent History Endocrine Medical History: No Pertinent History Musculoskeletal History: No Pertinent History GI Medical History: No Pertinent History History: No Pertinent History Psycho-Social History: No Pertinent History Male Reproductive Disorders: No Pertinent History Other Medical History: head injury as a child; unsure of specifics - Past Surgical History Past Surgical History: Yes Neuro Surgical History: No Pertinent History Cardiac: No Pertinent History Respiratory: No Pertinent History Gastrointestinal: No Pertinent History Genitourinary: No Pertinent History Musculoskeletal: Orthopedic Surgery Male Surgical History: No Pertinent History Other Surgical History: metal kj in right arm - Social History Smoking Status: Never smoker Exposure to second hand smoke: No Drug Use: none Patient Lives Alone: No - Social Determinants of Health Will the patient participate in the screening: Yes Do you worry about a steady place to live?: No Do you have any problems with any of the following?: No known problems In the past 12 months,have you had to go without utilities?: No Transportation Issues: No Has anyone in your support network made you feel unsafe?: No Have you or anyone in your house had to go without enough: No - Nursing Vital Signs Nursing Vital Signs: Initial Vital Signs Blood Pressure 148/104 06/07/24 20:51 O2 Sat by Pulse Oximetry 97 06/07/24 20:51 Pain Scale Pain Intensity 2 - Physical Exam General Appearance: no apparent distress, alert, anxiety Eye Exam: bilateral eye: normal inspection, PERRL, EOMI, abnormal EOM Ear Exam: bilateral ear: auricle normal Nasal Exam: normal inspection Throat Exam: moist mucus membranes, pharynx tenderness, uvula swelling Neck Exam: normal inspection, non-tender, supple, full range of motion Cardiovascular/Respiratory Exam: chest non-tender, no respiratory distress, No wheezing (No stridor) Abdominal Exam: non-tender Neurologic Exam: alert, oriented x 3, cooperative, select banker II-XII nml as tested, nml cerebellar function, nml station & gait, sensation nml Skin Exam: normal color, warm, dry SpO2 Interpretation: normal SpO2: 98 O2 Delivery: Room Air - Course Nursing assessment & vital signs reviewed: Yes Ordered Tests: Medication Summary Discontinued Medications Generic Name Dose Route Start Last Admin Trade Name Freq PRN Reason Stop Dose Admin Ceftriaxone Sodium 1,000 mg 06/07/24 21:27 06/07/24 21:44 Ceftriaxone Sodium 1000 Mg Inj Vial IM 06/07/24 21:28 1,000 mg STAT ONE Administration Ceftriaxone Sodium Confirm 06/07/24 21:32 Ceftriaxone Sodium 1000 Mg Inj Vial Administered 06/07/24 21:33 Dose 1,000 mg .ROUTE .STK-MED ONE Methylprednisolone Sodium 0 mg 06/07/24 21:06 06/07/24 21:43 Succinate 125 mg/ Sterile IM 06/07/24 21:07 125 mg Water 2 ml STAT ONE Administration Methylprednisolone Sodium Succinate Confirm 06/07/24 21:32 Methylprednis Sod Succ 125 Mg/2 Ml Vial Administered 06/07/24 21:33 Dose 125 mg .ROUTE .STK-MED ONE Sterile Water Confirm 06/07/24 21:32 Water For Injection,Sterile 10 Ml Vial Administered 06/07/24 21:33 Dose 10 ml IJ .STK-MED ONE - Progress Progress: unchanged, re-examined Progress Note: 06/07/24 21:32 My medical decision making and the assignment of low complexity to this patient's medical issue today is based on review of the patient's past medical history, review of the patient's medication list Counseled pt/family regarding: diagnosis, need for follow-up Medical Desision Making - Independent Historian Additional History obtained from: Spouse - Diagnostic Testing Diagnostic test were ordered, analyzed, and reviewed by me: No - Risk of complications The pt has a mod risk of morbidity or mortality based on: Need for prescription drug management - Departure Departure Disposition: Home Clinical Impression: Strep pharyngitis, Uvulitis Condition: Stable Critical Care Time: No Referrals: YAIR ARIAS [Primary Care Provider] - Follow up/PCP as directed Instructions: Strep Throat ED Additional Instructions: Take medications as prescribed. Forms: Work/School Release Form Prescriptions: Prednisone 10 mg [Deltasone 10 mg] 10 mg PO TID #12 tablet
[2024-06-07] MEDS ORDERED: Rocephin 1000 MG INJ ONE (21:32)
[2024-06-07] MEDS ORDERED: Sterile H2O 10 ml IJ ONE (21:32)
[2024-06-07] MEDS ORDERED: solu-MEDROL ONE (21:32)
[2024-06-07] MEDS: solu-MEDROL 125 MG, Sterile H2O 10 ml 2 ML IM ONE (21:43)
[2024-06-07] MEDS: Rocephin 1000 MG INJ IM ONE (21:44)
[2024-06-07 21:53] VITALS: BP 101/76; PULSE 71
== END 2024-06-07 21:57 | disposition home or self-care (01) ==
LOC: ED 18:02
DX: K12.2 Cellulitis and abscess of mouth (principal); J02.0 Streptococcal pharyngitis; Z79.52 Long term (current) use of systemic steroids
CPT/HCPCS: 96372; 99283; 99285; J0696; J2919